=== PATIENT | male | born 1970 | race Caucasian/White ===

== ENCOUNTER 2018-09-12 11:37 | Inpatient (IN) ==
--- NOTE | 2018-09-12 11:55 | PDOC ---
Nausea/Vomiting/Diarrhea HPI - General Chief Complaint: Nausea / Vomiting / Diarrhea Stated Complaint: black stools, dizzy Date Seen by Provider: 09/12/18 Time Seen by Provider: 11:46 Source: POSITIVE: Patient Exam Limitations: POSITIVE: No limitations - History of Present Illness Initial Comments: Patient presents to ED with complaints of dizziness and almost passing out. Patient states he has had black stools, nausea, vomiting and diarrhea for the past two days. Patient states he has had GI bleeds that have required hospitalization and blood transfusions in the recent past. Reports abdominal pain with current symptoms worst in LLQ. Denies fevers. Reports chills. Denies CP/SOB. Denies cough. Denies uri symptoms. Denies urinary complaints. He has not taken any medications at home. Body Location Affected: REPORTS: Abdomen Timing: REPORTS: Constant Duration: <1 week Severity: Moderate Quality: REPORTS: Aching, Cramping Abdominal Pain Onset Location: REPORTS: LLQ (worst in this location), Generalized abdomen Modifying Factors: improves with: Defecating, Vomiting Associated Symptoms: REPORTS: Vomiting, Diarrhea, Bloody Diarrhea, Abdominal Pain, Cramping, Aching Similar Symptoms Previously: Yes Recent Care Received: REPORTS: Hospitalized - Patient Home Medications Home Medications: Home Medications NK 09/12/18 - Patient Allergies Allergies/Adverse Reactions: Allergies Allergy/AdvReac Type Severity Reaction Status Date / Time No Known Drug Allergies Allergy NOT Verified 09/12/18 13:33 APPLICABLE Past Medical History - heen HEENT History: Denies History Cardiovascular History: Hypertension Respiratory History: Other (please comment) Additional Respiratory History: TOBACCO USE Gastrointestinal History: GERD, GI Bleed Additional Gastrointestinal History: bleeding ulcer with admit to hospital 12/03 Genitourinary History: Denies History Endocrine History: Denies History Musculoskeletal History: Denies History Neurological History: Denies History Blood Disorders: Denies History Psychiatric History: Denies History History of Sexually Transmitted Diseases: No Cancer History: Denies History History of MDRO: Unknown History of Other Communicable Diseases: No Tobacco Use: Current Every Day Smoker Alcohol Use: Occasionally In the Past 12 Months, Have Used or Abuse Any Substance: Marijuana, Methamphetamines, Methamphetamines Previous Hospitalizations: Yes Previous Surgical History: Yes Type / Date of Surgery: right wrist Anesthesia Reactions: No Significant Family History: No pertinent family hx ROS - Limitations ROS Limitations: No Limitations Constitution: REPORTS: Chills. DENIES: Fever, Diaphoresis Cardiovascular: REPORTS: Denies Cardiac Symptoms Respiratory: REPORTS: Denies Resp Symptoms Neurological: REPORTS: Dizziness, Other (near syncope) Gastrointestinal: REPORTS: Abdominal Pain, Nausea, Vomitting, Diarrhea, Black S tools Endocrine: REPORTS: Denies Symptoms Musculoskeletal: REPORTS: Denies MS Symptoms Genitourinary: REPORTS: Denies Symptoms Eyes: REPORTS: Denies Symptoms ENT: REPORTS: Denies Symptoms Skin: REPORTS: Denies Skin Symptoms Lympathic: REPORTS: Denies Lympathic Symptoms Immunologic: POSITIVE: Denies Symptoms Psychiatric: POSITIVE: Denies Psych Symptoms Nausea/Vomiting/Diarrhea Exam - General Appearance General Appearance: POSITIVE: Alert, Cooperative, Moderate Distress - HEENT HEENT: POSITIVE: Head Inspection Nml, Eyes Inspection Nml, Ears Inspection Nml, Nose Inspection Nml, Oral/Dental Inspect. Nml, Pharynx Inspect. Nml, PERRL, EOMI, Dry Mucous Membranes - Neck Neck: POSITIVE: Supple, Normal Inspection, Non Tender. NEGATIVE: Lymphadenopathy - Respiratory Respiratory: POSITIVE: No Respiratory Distress, Breath Sounds Normal, Chest Non- Tender - Cardiovascular Cardiovascular: POSITIVE: Regular Rate and Rhythm, Heart Sounds Normal, Equal P ulses, Strong Pulses Peripheral Pulses: Radial (R): 2+, Radial (L): 2+, Dorsalis-pedis (R): 2+, Dorsalis-pedis (L): 2+ - Chest Chest: POSITIVE: Non Tender - Abdomen Abdomen: Soft: (All Quadrants), Normal Bowel Sounds: (All Quadrants), No Guarding: (All Quadrants), No Rebound: (All Quadrants), Tenderness Noted: (LLQ) - Genital / Rectal Male Genital: POSITIVE: Normal Inspection Rectal: POSITIVE: Non Tender, Normal Rectal Tone, Black Stool, Heme Positive Stool. NEGATIVE: Tenderness - Back Back: POSITIVE: Normal Inspection - Skin Skin: POSITIVE: Intact, Normal For Race, Warm, Dry - Extremities Extremity: Non-Tender: (All Extremities), Normal ROM: (All Extremities), Normal Inspection: (All Extremities) - Neurological / Psychological Neurological: POSITIVE: Affect Apporpriate, Oriented X3, Motor Normal, Sensation Normal N/V/D Progress - Results Reviewed by me Xrays/CTs/US Reviewed by me: Yes Discussed with Radiologist: No Radiology Findings: Thickened bladder wall. No diverticulitis. No free air. Lab Results Reviewed by Me: Yes CBC and BMP: 09/12/18 12:03 09/12/18 12:03 Lab Results:: Laboratory Results 09/12/18 09/12/18 09/12/18 12:03 12:03 12:03 WBC 4.88 RBC 3.13 L Hgb 9.3 L Hct 28.4 L MCV 90.7 H MCH 29.7 MCHC 32.7 L RDW Std Deviation 42.3 RDW Coeff of Rajesh 13.2 Plt Count 247 MPV 10.5 Immature Gran % (Auto) 0.2 Neut % (Auto) 55.1 Lymph % (Auto) 36.5 Caldwell % (Auto) 6.4 Eos % (Auto) 1.4 Baso % (Auto) 0.4 Immature Gran # (Auto) 0.01 Neut # (Auto) 2.69 Lymph # (Auto) 1.78 Caldwell # (Auto) 0.31 Eos # (Auto) 0.07 Baso # (Auto) 0.02 WBC Morphology Comment Normal morphology Plt Morphology Comment Normal morphology RBC Morph Comment Normal morphology PT 10.2 INR 0.99 Sodium 140 Potassium 4.4 Chloride 106 Carbon Dioxide 27 Anion Gap 7 BUN 20 Creatinine 1.0 Estimated GFR > 60 BUN/Creatinine Ratio 20.00 Glucose 123 H Calculated Osmolality 293.0 H Calcium 8.7 Total Bilirubin 0.4 AST 29 ALT 37 Alkaline Phosphatase 53 Total Protein 6.3 Albumin 3.7 Globulin 2.5 Albumin/Globulin Ratio 1.40 Blood Type Antibody Screen Crossmatch 09/12/18 12:05 WBC RBC Hgb Hct MCV MCH MCHC RDW Std Deviation RDW Coeff of Rajesh Plt Count MPV Immature Gran % (Auto) Neut % (Auto) Lymph % (Auto) Caldwell % (Auto) Eos % (Auto) Baso % (Auto) Immature Gran # (Auto) Neut # (Auto) Lymph # (Auto) Caldwell # (Auto) Eos # (Auto) Baso # (Auto) WBC Morphology Comment Plt Morphology Comment RBC Morph Comment PT INR Sodium Potassium Chloride Carbon Dioxide Anion Gap BUN Creatinine Estimated GFR BUN/Creatinine Ratio Glucose Calculated Osmolality Calcium Total Bilirubin AST ALT Alkaline Phosphatase Total Protein Albumin Globulin Albumin/Globulin Ratio Blood Type O POSITIVE Antibody Screen Negative Crossmatch See Detail - Patient's Progress Pain Medication Addressed: POSITIVE: Not Applicable School/Work Release Addressed: POSITIVE: Not Applicable Re-Examine Comment: Patient responded well to normal saline bolus. SBP improved to 110s. Patient had no further vomiting nor bowel movements in ED. Patient does have anemia and will likely need blood transfusions. Type and crossmatch performed. Patient has stabalized at this time and therefore transfusion was not started in ED. CT of abd/pelvis performed and no acute cause of GI bleeding found. I consulted general surgery and they will consult on patient for possible EGD. I discussed case with Dr. Lancaster, Hospitalist, who accepted patient for admission. Patient admitted to floor in stable but guarded condition. Status: POSITIVE: Improved MDM / ED Course: Patient presents to ED with hypotension and dizziness. Will establish two IV lines. Will give bolus of normal saline. Will obtain labs. Rectal exam positive for GI bleeding. Will type and cross for possible transfusion. Will obtain CT of abdomen to evaluate for possible causes of GI bleed like divertic ulitis. Will give protonix IV and start on protonix drip. Will give zofran for nausea. - Consult Consult (If Yes, Name of Consulting MD & Time Called): Yes (Dr. Ellington) Consulting MD will see pt:: POSITIVE: [facility] [place] Admit Counseled: POSITIVE: Patient, Family, RE: Lab Results, RE: Radiology Results, RE: DX Patient Care Time - Estimated PCT Patient Care Time (In Minutes): 75 Vital Signs - Recent Vital Signs Vital Signs: Vital Signs (Last 8 hours) Temp Pulse Resp BP Pulse Ox 09/12/18 11:40 96.0 F L 91 20 75/48 98 Critical Care Note - Critical Care Note Total Time (mins): 35 Critical Care: Shock, Multiple Organ Systems Threatened / At Risk History Source: Patient, Family Discussion with Ampoule Filler And Sealer: Discussed with general surgery and hospitalist Discharge Clinical Impression: GI bleeding, Hypotension, Anemia due to GI blood loss, Nausea and vomiting, Diarrhea, Dehydration Discharge Disposition: Admit to Inpatient Condition: Fair Care Transferred To: Dr. Lancaster Date Decision to Admit to Inpatient: 09/12/18 Time Decision to Admit to Inpatient: 13:21
[2018-09-12] MEDS ORDERED: Sodium Chloride 0.9% 1,000 ML PRIMARY IV ONE ×3 (11:57→13:28)
[2018-09-12] MEDS ORDERED: PANTOPRAZOLE IV 40 MG VIAL IVP ONE (11:57)
[2018-09-12 12:05] LABS: BASOPHILS # (AUTO) 0.02 10*3/UL; BASOPHILS % (AUTO) 0.4 % (0-1); EOSINOPHILS # (AUTO) 0.07 10*3/UL; EOSINOPHILS % (AUTO) 1.4 % (0-8); Hematocrit [HCT] 28.4 % (42.0-52.0); Hemoglobin [HGB] 9.3 g/dL (14.0-18.0); LYMPHOCYTES # (AUTO) 1.78 10*3/uL; MEAN CORPUSCULAR HEMOGLOBIN 29.7 PG (27-31); MEAN CORPUSCULAR HGB CONC 32.7 g/dL (33-37); MEAN CORPUSCULAR VOLUME 90.7 FL (80-90); MEAN PLATELET VOLUME 10.5 FL (7.4-12.2); MONOCYTES # (AUTO) 0.31 10*3/UL (0.3-0.8); MONOCYTES % (AUTO) 6.4 % (5-15); NEUTROPHILS # (AUTO) 2.69 10*3/UL; NEUTROPHILS % (AUTO) 55.1 % (50-80); RED BLOOD COUNT 3.13 10^6/uL (4.70-6.10)
[2018-09-12] MEDS ORDERED: ONDANSETRON 4 MG/2 ML VIAL IVP ONE (12:09)
[2018-09-12 12:12] LABS: BLOOD UREA NITROGEN 20 mg/dL (7-22); SERUM ALBUMIN 3.7 g/dL (3.5-4.8)
[2018-09-12 12:18] LABS: PLATELET MORPHOLOGY COMMENT NORMAL MORPHOLOGY (NORM); RBC MORPHOLOGY COMMENT NORMAL MORPHOLOGY (NORM); WBC MORPHOLOGY COMMENT NORMAL MORPHOLOGY (NORM)
--- NOTE | 2018-09-12 13:14 | DI ---
CT ABDOMEN SCAN WITH IV CONTRAST, 09/12/2018 11:55 AM : Clinical History: Abdominal pain. Nausea. Vomiting. Diarrhea. Previous Exam: None at this facility. IV Contrast: 75 mL of Isovue 300. Oral Contrast: No oral contrast ordered. Rectal Contrast: No rectal contrast ordered. Lungs: No infiltrate or effusion. Liver: Normal. Gallbladder: Grossly normal. Adrenal Glands: Normal. Spleen: Normal. Pancreas: Normal. Kidneys: Normal size, shape, position and contour. No hydronephrosis or hydroureter. No renal or uret eral calculi. Masses: None. Lymph Nodes: Normal. Ascites: No ascites. Spine: Normal lower thoracic and lumbar spine. READING: Normal CT abdomen scan. CT PELVIS SCAN WITH IV CONTRAST, 09/12/2018 11:55 AM: Clinical History: See above. Previous Exam: None at this facility. Contrast: Same bolus used for CT scans of the abdomen. Masses: No masses or enhancing lesions. Ascites: None. Lymph Nodes: No adenopathy. Appendix: Normal. Small Bowel: Normal small bowel, terminal ileum, and ileocecal valve. Colon: Normal. No evidence of colitis or diverticulitis. Bladder: The bladder is only partially filled but the mucosa appears quite thickened. Hernias: None. Bony Pelvis: Normal sacrum, pelvic bones, and hips. READING: Although the bladder is only partially filled, the bladder wall still appears thickened and does show enhancement. This is a nonspecific finding but may represent cystitis.
[2018-09-12] MEDS ORDERED: ONDANSETRON 4 MG/2 ML VIAL IVP PRN (14:38)
[2018-09-12] MEDS ORDERED: CALCIUM CARBONATE 500 MG (TUMS) CHEWABLE TABLET PO PRN (14:38)
[2018-09-12] MEDS ORDERED: LIDOCAINE W/ SODIUM BICARB 0.5 ML SYR SUBD PRN (14:38)
[2018-09-12] MEDS ORDERED: DOCUSATE 100 MG CAPSULE PO PRN (14:38)
[2018-09-12] MEDS ORDERED: ACETAMINOPHEN 325 MG TABLET PO PRN (14:38)
--- NOTE | 2018-09-12 14:38 | PDOC ---
HPI - History of Present Illness Date of Service: 09/12/18 Time of Service: 14:30 Chief Complaint: Melena, vomiting yesterday and stomach ache off 2 days duration History of Present Illness: This is a 48 years old male with medical history significant for history of bleeding duodenal ulcer last time he was admitted to the hospital was in 2013. He did receive blood transfusion then, this time he presented to the hospital with history of abdominal ache for about 2 days felt in the epigastrium, he had black stool the day before, yesterday he vomited once and had liquid diarrhea, last night also he felt somewhat dizzy and lightheaded. Because of all the symptoms he came into the ER today he was hypotensive blood pressure was 75 systolic when he came in he was givin fluids and blood pressure responded. His Hemoglobin was 9.3. He was admitted for further management after receiving Protonix and put on a Protonix drip. He feels somewhat better compared to when he came in. He still have some stomachache. No bowel movement today. He Denied shortness of breath or chest pain. He is not taking any medication currently. He said he is under a lot of stress. He had some argument with his partner ended up in [place] hours and now he is living in a camper in [place]. Past Medical History Medical History: 1. History of bleeding duodenal ulcer in the past. Last time he was mentally was 2013 Surgical History: EGD for bleeding duodenal ulcer, otherwise no other surgeries Family History: Reviewed an Not Pertinent (No heart disease in his parents or cancer) Past Social History: He smokes a pack would last him 3 days, doesn't drink, he did admit to smoking weed daily and methamphetamine also daily the last time though he used was 3 days ago. Tobacco Use: Current Every Day Smoker In the Past 12 Months, Have Used or Abuse Any of the Following Substance: Marij uana, Methamphetamines, Methamphetamines Alcohol Use: None Medication / Allergies Home Medications: Home Medications Medication Instructions Recorded Confirmed Type NK 09/12/18 09/12/18 History Allergies/Adverse Reactions: Allergies Allergy/AdvReac Type Severity Reaction Status Date / Time No Known Drug Allergies Allergy NOT Verified 09/12/18 13:33 APPLICABLE Review of Systems - Review of Systems All Systems: Reviewed & No Additional Complaints Except as Stated Exam - Vitals Vital Signs: Vital Signs Temperature 96.0 F Temperature Source Temporal Artery Scan Pulse Rate [Pulse Oximeter] 91 Respiratory Rate 20 Blood Pressure [Left Arm] 75/48 Pulse Ox 98 Oxygen Delivery Method Room Air Height 6 ft Weight 200 lb - General General Appearance: No Acute Distress, Cooperative - Head Head Exam: Normal Inspection - Eye Eye Exam: POSITIVE: Normal Appearance - ENT ENT Exam: POSITIVE: Normal Exam - Neck Neck Exam: Normal Inspection - Respiratory Respiratory Exam: POSITIVE: Clear to Auscultation - Bilaterally - Cardiovascular Cardiovascular Exam: POSITIVE: RRR - GI/Abdominal GI/Abdominal Exam: POSITIVE: Normal Bowel Sounds, Non Tender, Non Distended, Soft, No Organomegaly - Rectal Rectal Exam: POSITIVE: Deferred - External Exam: POSITIVE: Deferred - Extremities Extremities Exam: POSITIVE: Normal Inspection - Back Back Exam: POSITIVE: Normal Inspection - Neurological Neurological Exam: POSITIVE: Alert, Oriented x 3, CN II-XII Intact, No Facial Droop, Speech Intact / Clear, Moves All Extremities Equally - Psychiatric Psychiatric Exam: POSITIVE: Normal Affect - Integumentary Integumentary Exam: POSITIVE: Normal Color Results - Labs CBC and BMP: 09/12/18 12:03 09/12/18 12:03 - Imaging Status: Report Reviewed by Me (CT of the abdomen was normal, CT of the pelvis there was some thickening of the bladder question cystitis.) Assessment and Plan - Patient Problems (1) GI bleeding Current Visit: Yes Status: Acute Comment: Probably upper in etiology. He gave a history of for bleeding duodenal ulcer in the past. This may be a recurrence of the previous issue that he had. They gave him Protonix will continue Protonix drip. Dr. Ellington saw the patient a plan to do endoscopy in the morning. Will repeat his H&H and depending on the number that will decide about giving him blood transfusion Code(s): K92.2 - Gastrointestinal hemorrhage, unspecified
--- NOTE | 2018-09-12 14:44 | CONSULT ---
Consult Note - Consult Consult Date: 09/12/18 Reason for Consult: PreOp Consulation : General Surgery Requesting Physician: Dr. Lancaster Primary Care Provider: Reji Adams MD - History of Present Illness History of Present Illness: This 48-year-old gentleman who comes in with suspected upper GI bleed. He states that he is having black tarry stools. He does she is hypotensive but responded to fluids. Initial hemoglobin is in the 9 range. Patient states that he's had 2 bleeding ulcers in the past. Both normal cardiac EGD to make the diagnosis and treatment. Patient comes in right now is hemodynamically stable blood pressures along the 120s systolically at heart rates only in the 70s. Past Medical History Family History: Reviewed an Not Pertinent (No heart disease in his parents or cancer) Tobacco Use: Current Every Day Smoker In the Past 12 Months, Have Used or Abuse Any of the Following Substance: Marijuana, Methamphetamines, Methamphetamines Medication / Allergies Home Medications: Home Medications Medication Instructions Recorded Confirmed Type NK 09/12/18 09/12/18 History Allergies/Adverse Reactions: Allergies Allergy/AdvReac Type Severity Reaction Status Date / Time No Known Drug Allergies Allergy NOT Verified 09/12/18 13:33 APPLICABLE Results - Labs CBC and BMP: 09/12/18 12:03 09/12/18 12:03 Exam - Vitals Vital Signs: Vital Signs Temperature 96.0 F Temperature Source Temporal Artery Scan Pulse Rate [Pulse Oximeter] 91 Respiratory Rate 20 Blood Pressure [Left Arm] 75/48 Pulse Ox 98 Oxygen Delivery Method Room Air Height 6 ft Weight 200 lb - General General Appearance: No Acute Distress, Cooperative - Eye Eye Exam: POSITIVE: PERRL, EOMI Assessment and Plan - Patient Problems (1) Upper GI bleed Current Visit: Yes Status: Acute Code(s): K92.2 - Gastrointestinal hemorrhage, unspecified - Assessment / Plan Additional Assessment/Plan Details: Patient has an upper GI bleed. Right now is hemodynamically stable. Recommend placing the patient on a Protonix drip. He'll be set up for an endoscopy in the a.m. Risks and benefits were explained time. If the patient should start bleeding again will do an emergent EGD. Would recommend the patient have an EGD. The risk and potential complications of the procedure were discussed with the patient.. They understood this. Also discussed alternatives diagnostic and treatment options. Will get the EGD set up at the first available date. CPT 56608
[2018-09-12] MEDS: Lactated Ringers 1,000 ML PRIMARY IV SCH ×2 (15:16→21:29)
[2018-09-12 18:32] LABS: Hematocrit [HCT] 21.8 % (42.0-52.0); Hemoglobin [HGB] 7.1 g/dL (14.0-18.0)
[2018-09-12] MEDS ORDERED: NS 500 ML for Blood Transfusion PRIMARY IV PRN (19:21)
[2018-09-13] MEDS: Lactated Ringers 1,000 ML PRIMARY IV SCH (05:45)
[2018-09-13 06:41] LABS: BASOPHILS # (AUTO) 0.02 10*3/UL; BASOPHILS % (AUTO) 0.4 % (0-1); EOSINOPHILS # (AUTO) 0.15 10*3/UL; EOSINOPHILS % (AUTO) 3.3 % (0-8); Hematocrit [HCT] 26.8 % (42.0-52.0); Hemoglobin [HGB] 8.9 g/dL (14.0-18.0); MEAN CORPUSCULAR HEMOGLOBIN 29.9 PG (27-31); MEAN CORPUSCULAR HGB CONC 33.2 g/dL (33-37); MEAN CORPUSCULAR VOLUME 89.9 FL (80-90); MEAN PLATELET VOLUME 9.8 FL (7.4-12.2); MONOCYTES # (AUTO) 0.29 10*3/UL (0.3-0.8); MONOCYTES % (AUTO) 6.4 % (5-15); NEUTROPHILS # (AUTO) 2.45 10*3/UL; NEUTROPHILS % (AUTO) 54.3 % (50-80); RED BLOOD COUNT 2.98 10^6/uL (4.70-6.10)
[2018-09-13 06:54] LABS: BLOOD UREA NITROGEN 12 mg/dL (7-22)
[2018-09-13 07:40] LABS: PLATELET MORPHOLOGY COMMENT NORMAL MORPHOLOGY (NORM); RBC MORPHOLOGY COMMENT NORMAL MORPHOLOGY (NORM); WBC MORPHOLOGY COMMENT NORMAL MORPHOLOGY (NORM)
[2018-09-13 07:48] LABS: Hematocrit [HCT] 25.9 % (42.0-52.0); Hemoglobin [HGB] 8.7 g/dL (14.0-18.0)
--- NOTE | 2018-09-13 09:01 | PDOC(PROG) ---
Date of Service: 09/13/18 Time of Service: 09:00 Interval History: Subjective Patient feels better. No nausea, no abdominal pain. He did not have a bowel movement since he is been here. He said he did have a shower earlier and he stood up and he didn't feel dizzy or lightheaded. Objective : Data - Labs CBC and BMP: 09/13/18 06:25 09/13/18 06:25 Objective : Exam - General General Appearance: No Acute Distress, Cooperative - Head Head Exam: Normal Inspection - Eye Eye Exam: Normal Appearance - ENT ENT Exam: Normal Exam - Neck Neck Exam: Normal Inspection - Respiratory Respiratory Exam: Clear to Auscultation - Bilaterally - Cardiovascular Cardiovascular Exam: RRR - GI/Abdominal GI/Abdominal Exam: Normal Bowel Sounds, Non Tender, Non Distended, Soft, No Organomegaly - Rectal Rectal Exam: Deferred - External Exam: Deferred Exam: Deferred - Extremities Extremities Exam: Normal Inspection - Back Back Exam: Normal Inspection - Neurological Neurological Exam: Alert, Oriented x 3, CN II-XII Intact, No Facial Droop, Moves All Extremities Equally - Psychiatric Psychiatric Exam: Normal Affect Assessment and Plan - Patient Problems (1) GI bleeding Current Visit: Yes Status: Acute Comment: Hemoglobin last night did drop to 7.1 so we gave him 2 units of blood. Hemoglobin is been stable today and is 8.9 from 8.7 posttransfusion. He will have an EGD today. Continue IV Protonix for now Code(s): K92.2 - Gastrointestinal hemorrhage, unspecified
[2018-09-13] MEDS ORDERED: PROPOFOL 10 MG/1 ML (200 MG/20 ML) VIAL IV ONE (10:11)
--- NOTE | 2018-09-13 10:23 | GEN.OPNOTE ---
EGD Operative Note Surgery Date: 09/13/18 Preoperative Diagnosis: Upper GI bleed Postoperative Diagnosis: Duodenal ulcer Procedure: Esophagogastroduodenoscopy with biopsy Surgeon: Jose Ellington MD Anesthesia Provider: Clari Araujo CRNA Anesthesia Type: MAC Indications: Patient is an upper GI bleed. Patient states that he's had previous upper GI bleeds and has had a ulcer Findings: Esophagus: Olympus video EGD scope inserted in the posterior pharynx esophagus under direct visualization patient esophagus was normal. GE Junction : At 40 cm from incisors Fundus : Scope retroflexed on itself revealing a small hiatal hernia otherwise no active pathology Body : Body the stomach appeared to be normal Prepyloric : Prepyloric area was unremarkable biopsy taken for CLOtest Small Intestine : Second portion the duodenum he had an ulcer and inflammatory condition. At brief glimpse at a small ulcers seen in the first portion of the duodenum. A lubricated flexible upper endoscope was inserted and passed through the esophagus and stomach into the duodenum. Endoscopy Procedures - Endoscopy Procedures Primary Endoscopy Procedure: 43105 : EGD w/Biospy
--- NOTE | 2018-09-13 13:14 | CRNA.PROGR ---
Anesthesia Time - Procedure/Recovery Time Start Date: 09/13/18 End Date: 09/13/18 Anesthesia : Time In: 10:03 Anesthesia : Time Out: :21 Anesthesia : Total Time: 18 - Total Anesthesia Time Total Anesthesia Time (minutes): 18 - Other Weight: 102.33 kg Height: 6 ft Body Mass Index (BMI): 30.6 Physical Status: P3 (Daily use of drugs not legal ones.) Anesthesia Type: MAC
--- NOTE | 2018-09-13 13:15 | CRNA.PROGR ---
Post Anesthesia Phase II - Post Anesthesia Phase II Patient Stable and Discharged To: Med/Surg Care Assumed By Surgeon: Yo Ellington MD Temperature: 98.2 F Pulse Rate: 61 Respiratory Rate: 18 Blood Pressure: 101/69 Pulse Ox: 97 Total Coral Score at Discharge: 9 Post Anesthesia Discharge Criteria Met: Yes
--- NOTE | 2018-09-13 13:26 | DCSUMMARY ---
Hospitalization Summary Admit Date: 09/12/2018 Discharge Date: 09/13/18 Hospital Course: Discharge diagnoses 1. GI bleed secondary to duodenal ulcer 2. History of GI bleed secondary to an ulcer 3. Drug abuse Hospital course This is a 48 years old male with medical history significant for history of bleeding duodenal ulcer in the past the last time he was admitted to the hospital was in 2013 at that time he did receive blood transfusion. He presented to the hospital with history of abdominal ache for about 2 days felt in the epigastrium, he had black stool two days before he presented to the hospital, the day before he presented to the hospital he had liquid diarrhea and he vomited once he did feel also dizzy and lightheaded and because of all the symptoms he came into the ER he was initially hypotensive blood pressure was 75 systolic but he did respond to fluid, his hemoglobin was 9.3 when he was admitted to the hospital. We put him on Protonix drip, we have him fluid and repeated his hemoglobin dropped to 7.1 and he received 2 units of blood. The next day his hemoglobin was 8.9 and was feeling a lot better compared to when he came in. He was seen by Dr. Ellington who did an EGD which showed a duodenal ulcer. There was no evidence of active bleeding. After that we did feed him. He tolerated diet. He walked around the nurse's station multiple times continued to felt good. His exam was unremarkable we thought that he could be discharged home. Biopsy was taken for H pylori. We discharged him on Protonix. He'll follow-up with Dr. Ellington to get the biopsy result. Laboratory Results 09/12/18 09/12/18 09/12/18 01:25 12:05 18:00 WBC RBC Hgb Cancelled 7.1 L Hct Cancelled 21.8 L MCV MCH MCHC RDW Std Deviation RDW Coeff of Rajesh Plt Count MPV Immature Gran % (Auto) Neut % (Auto) Lymph % (Auto) [place] % (Auto) Eos % (Auto) Baso % (Auto) Immature Gran # (Auto) Neut # (Auto) Lymph # (Auto) [place] # (Auto) Eos # (Auto) Baso # (Auto) WBC Morphology Comment Plt Morphology Comment RBC Morph Comment Sodium Potassium Chloride Carbon Dioxide Anion Gap BUN Creatinine Estimated GFR BUN/Creatinine Ratio Glucose Calculated Osmolality Calcium Blood Type O POSITIVE Antibody Screen Negative Crossmatch See Detail 09/13/18 09/13/18 09/13/18 01:30 06:25 06:25 WBC 4.52 L RBC 2.98 L Hgb 8.7 L 8.9 L Hct 25.9 L 26.8 L MCV 89.9 MCH 29.9 MCHC 33.2 RDW Std Deviation 42.5 RDW Coeff of Rajesh 13.6 Plt Count 158 MPV 9.8 Immature Gran % (Auto) 0.2 Neut % (Auto) 54.3 Lymph % (Auto) 35.4 [place] % (Auto) 6.4 Eos % (Auto) 3.3 Baso % (Auto) 0.4 Immature Gran # (Auto) 0.01 Neut # (Auto) 2.45 Lymph # (Auto) 1.60 [place] # (Auto) 0.29 L Eos # (Auto) 0.15 Baso # (Auto) 0.02 WBC Morphology Comment Normal morphology Plt Morphology Comment Normal morphology RBC Morph Comment Normal morphology Sodium 139 Potassium 4.0 Chloride 109 Carbon Dioxide 25 Anion Gap 5 BUN 12 Creatinine 1.0 Estimated GFR > 60 BUN/Creatinine Ratio 12.00 Glucose 88 Calculated Osmolality 286.0 Calcium 8.3 L Blood Type Antibody Screen Crossmatch Discharge instruction Diet regular Activity as started Medications Current Medication(s) Medication Instructions Recorded Confirmed Type Pantoprazole Sodium [Protonix] 40 mg PO BID #30 tab 09/13/18 Rx Follow-up with Dr. Ellington in 1 week to get the biopsy result Condition at discharge was stable for discharge Exam - Vitals Vital Signs: Vital Signs Temperature 98.2 F Temperature Source Oral Pulse Rate [Telemetry] 70 Pulse Rate [Apical] 71 Pulse Rate [Pulse Oximeter] 91 Pulse Rate 61 Respiratory Rate 18 Blood Pressure [Right Arm] 133/76 Blood Pressure [Left Arm] 75/48 Blood Pressure 101/69 Pulse Ox 97 Oxygen Flow Rate 5 liters nasal cannula Oxygen Delivery Method Room Air Height 6 ft Weight 225 lb 9.6 oz Patient Problems - Patient Problem List (1) GI bleeding Status: Acute Code(s): K92.2 - Gastrointestinal hemorrhage, unspecified Category: Medical
== END 2018-09-13 14:05 | disposition home or self-care (01) | DRG 379 ==
LOC: ER 11:37 → ICU 14:09 → OPS 09-13 09:19 → MED/SURG 09-13 10:24 → ICU 09-13 10:24
PROVIDERS: ADMIT Internal Medicine; ATTEND Internal Medicine